=== PATIENT | male | born 1935 | race Caucasian/White ===

== ENCOUNTER → 2016-09-10 | Outpatient (CLI) | payer OTHER ==
--- NOTE | 2016-09-10 13:12 | PCVCIMAG ---
APPROVED REPORT Indications Stenosis Risk Factors Hypertension: Diabetes Doppler Spectral Velocity Analysis PSV / EDVPSV / EDV ECA (R) 128 / 9 cm/sECA (L) 57 / 4 cm/s dICA (R) 33 / 10 cm/sdICA (L) 65 / 17 cm/s Shaylee (R) 65 / 17 cm/smICA (L) 72 / 21 cm/s pICA (R) 114 / 28 cm/spICA (L) 44 / 12 cm/s Bulb (R) 68 / 14 cm/sBulb (L) 71 / 16 cm/s dCCA (R) 57 / 9 cm/sdCCA (L) 47 / 9 cm/s mCCA (R) 59 / 11 cm/smCCA (L) 65 / 9 cm/s Vert (R) 119 / 29 cm/sVert (L) 46 / 13 cm/s ICA/CCA 2.00ICA/CCA 1.53 Basic Measurements Blood Pressure: Pulses: Right Left RightLeft Brachial(Sitting) 134/268cjIa141/104mmHgTemporal Real Time B-Mode Imaging Vert. (R)AntegradeVert. (L)Antegrade Findings The right carotid bulb has moderate calcified plaque. The right proximal internal carotid artery shows 40-50% stenosis. The right common carotid artery shows no significant stenosis. The right external carotid artery shows no significant stenosis. The left carotid bulb has mild plaque. The left proximal internal carotid artery shows <40% stenosis. The left common carotid artery shows no significant stenosis. The left external carotid artery shows no significant stenosis. Conclusion 1. Right internal carotid artery stenosis (40-50%) 2. Left internal carotid artery stenosis (<40%) 3. Antegrade vertebral flow
--- NOTE | 2016-09-10 13:22 | PCVCIMAG ---
APPROVED REPORT Study performed: 09/10/2016 10:37:37 EXAM: Comprehensive 2D, Doppler, and color-flow Echocardiogram Patient Location: Echo lab Status: routine Other Information Study Quality: Technically Limited Indications Hypertension/HDD Ischemic cardiomyopathy, AICD. Hyperlipidemia 2D Dimensions LVEF(%): 37.41 (>50%) IVSd: 11.85 (7-11mm)LVOT Diam: 21.55 (18-24mm) LVDd: 61.28 mm PWd: 11.31 (7-11mm)Ascending Ao: 39.90 (22-36mm) LVDs: 49.99 (25-40mm) Left Atrium: 38.37 (27-40mm) Aortic Root: 26.24 mm LV Single Plane 4CH: 35.88 % Diane's LVEF: 37.41 % Volumes Left Atrial Volume (Systole) Single Plane 4CH: 34.87 mLSingle Plane 2CH: 43.30 mL LA ESV Index: 18.00 mL/m2 Aortic Valve AoV Peak Scotty.: 1.66 m/s AO Peak Gr.: 11.07 mmHgLVOT Max P.49 mmHg LVOT Max V: 1.06 m/s VERNA Vmax: 2.32 cm2 Mitral Valve E/A Ratio: 0.0 MV E Max Scotty.: 0.61 m/s MV A Scotty.: 0.00 m/s IVRT: 200.69 ms Tricuspid Valve TR Peak Scotty.: 2.69 m/s TR Peak Gr.: 29.04 mmHg Left Ventricle Left ventricle is dilated. Inferior wall hypokinesis. Basal inferoseptal hypokinesis There is normal left ventricular wall thickness. Left ventricular systolic function is moderately decreased. LVEF is 35%. Grade I - abnormal relaxation pattern. Right Ventricle The right ventricle is normal size. The right ventricular systolic function is normal. Pacemaker wire is noted. Atria Left atrium is mildly dilated. Right atrium is dilated. Pacemaker wire is noted. Aortic Valve The aortic valve is normal in structure. No aortic regurgitation is present. There is no aortic valvular stenosis. Mitral Valve Mild mitral annular calcification No mitral insufficiency No evidence of mitral valve stenosis. Tricuspid Valve The tricuspid valve is normal in structure. Trace tricuspid regurgitation. Pulmonary artery pressure is 36mmhg. Pulmonic Valve The pulmonary valve is normal in structure. There is no pulmonic valvular regurgitation. Great Vessels The aortic root is normal in size. IVC is normal in size and collapses with >50% inspiration Pericardium There is no pericardial effusion. <Conclusion> Left ventricular systolic function is moderately decreased. Basal inferoseptal hypokinesis Grade I diastolic dysfunction. EF 35% Left atrium is mildly dilated. The aortic valve is normal in structure. No aortic regurgitation or stenosis Mild mitral annular calcification. No mitral insufficiency Trace tricuspid regurgitation. Pulmonary artery pressure is 36mmHg. There is no pericardial effusion.
== END | disposition home or self-care (01) ==
LOC: PCVCIMAG 10:21
PROVIDERS: ATTEND Internal Medicine
DX: I65.23 Occlusion and stenosis of bilateral carotid arteries (principal); I25.5 Ischemic cardiomyopathy; I13.0 Hypertensive heart and chronic kidney disease with heart failure and stage 1 through stage 4 chronic kidney disease, or unspecified chronic kidney disease; I50.22 Chronic systolic (congestive) heart failure; N18.3 Chronic kidney disease, stage 3 (moderate); I25.10 Atherosclerotic heart disease of native coronary artery without angina pectoris; I26.99 Other pulmonary embolism without acute cor pulmonale; G47.33 Obstructive sleep apnea (adult) (pediatric); E78.5 Hyperlipidemia, unspecified; I07.1 Rheumatic tricuspid insufficiency; E11.22 Type 2 diabetes mellitus with diabetic chronic kidney disease; Z86.73 Personal history of transient ischemic attack (TIA), and cerebral infarction without residual deficits; Z79.82 Long term (current) use of aspirin; Z79.01 Long term (current) use of anticoagulants; Z95.810 Presence of automatic (implantable) cardiac defibrillator; Z95.1 Presence of aortocoronary bypass graft; Z88.8 Allergy status to other drugs, medicaments and biological substances
CPT/HCPCS: 80061; 85610; 93005; 93279; 93306; 93880; G0463

== ENCOUNTER → 2017-09-13 | Outpatient (CLI) | payer OTHER | END | disposition home or self-care (01) | LOC: PCVCIMAG 08:09 | DX: I65.23 Occlusion and stenosis of bilateral carotid arteries (principal); I11.0 Hypertensive heart disease with heart failure; I50.22 Chronic systolic (congestive) heart failure; I25.5 Ischemic cardiomyopathy; I25.10 Atherosclerotic heart disease of native coronary artery without angina pectoris; E78.5 Hyperlipidemia, unspecified; E11.9 Type 2 diabetes mellitus without complications | CPT/HCPCS: 93306; 93880 ==

== ENCOUNTER → 2018-03-17 | Outpatient (CLI) | payer OTHER | END | disposition home or self-care (01) | LOC: PCVCCLINIC 10:36 | PROVIDERS: ATTEND Internal Medicine | DX: I25.118 Atherosclerotic heart disease of native coronary artery with other forms of angina pectoris (principal); I13.0 Hypertensive heart and chronic kidney disease with heart failure and stage 1 through stage 4 chronic kidney disease, or unspecified chronic kidney disease; E11.22 Type 2 diabetes mellitus with diabetic chronic kidney disease; N18.3 Chronic kidney disease, stage 3 (moderate); I50.22 Chronic systolic (congestive) heart failure; I65.23 Occlusion and stenosis of bilateral carotid arteries; E78.5 Hyperlipidemia, unspecified; G47.33 Obstructive sleep apnea (adult) (pediatric); I71.2 Thoracic aortic aneurysm, without rupture; Z95.810 Presence of automatic (implantable) cardiac defibrillator; Z79.01 Long term (current) use of anticoagulants; Z79.82 Long term (current) use of aspirin | CPT/HCPCS: 36415; 80061; 93005; 93282; G0463 ==